=== PATIENT | male | born 1990 | race Caucasian/White ===

== ENCOUNTER 2025-01-17 22:55 | Inpatient (IN) | payer OTHER, SELFPAY ==
[2025-01-17 18:54] VITALS: BP 154/81
--- NOTE | 2025-01-17 19:26 | ED.GENMED ---
History of Present Illness
<THIEN Beaver - Last Filed: 01/17/25 22:13>
General
Chief Complaint: Breathing Problem
Source: patient
Exam Limitations: none
Time Seen by Provider: 01/17/25 19:26
Nursing documentation reviewed up to this point in time: agreed with
History of Present Illness
History of Present Illness:
Patient is a 34-year-old male with history of Down syndrome with history of AV canal repair at 6 months of age presents to the ER for evaluation. Parents report the patient has had symptoms of cough for the past several months and he is presently
seeing a smutter at [facility]. Patient is on albuterol and Atrovent nebs at home and Tessalon. He recently started antibiotics today. They report prior to arrival however he started to have shortness of breath suddenly and they noticed his
heart rate was fast. No recent fevers.
Review of Systems
<THIEN Beaver - Last Filed: 01/17/25 22:13>
Review of Systems
Allergies reviewed?: Yes
Other source history: family
All Other Systems: ROS reviewed and negative except as documented in HPI and ROS
Constitutional: Reports no symptoms
Respiratory: Reports trouble breathing
Cardiac: Reports no symptoms
ABD/GI: Reports no symptoms
: Reports no symptoms
Musculoskeletal: Reports no symptoms
Skin: Reports no symptoms
Neurological: Reports no symptoms
Phy Exam
<THIEN Beaver - Last Filed: 01/17/25 22:13>
General Physical Exam
General Presentation: no apparent distress
General age: appears stated age
General Skin: warm and dry
General Habitus: normal
General Mental: alert
General Hydration: appears well hydrated
Neurological Exam
Neurological Exam: alert and oriented x3
Musculoskeletal Exam
Musculoskeletal Exam: full ROM
Skin Exam
Skin Exam: normal color and warm/dry
Psychiatric Exam
Psychiatric Exam: normal mood/affect
Course
<THIEN Beaver - Last Filed: 01/17/25 22:13>
Orders/Labs/Results
Orders:
Orders
01/17/25 18:57
ECG [Electrocardiogram (*1)] Urgent
Reason for Study: Shortness of Breath
EKG- Treatment ONCE
01/17/25 19:34
Portable Chest Xray [CR Chest Portable - 1 View] Urgent
Comment:
Reason For Exam: But I was goingsob
Reason Study Needs to be Portable: Unable to Transport
01/17/25 19:35
IV Insert/Care/Rem.- Treatment PRN
0.9% Sodium Chloride 1000 ml [Nss] 1,000 ml IV BOLUS
01/17/25 19:40
Acetaminophen [Tylenol] 650 mg .ROUTE .STK-MED ONE
01/17/25 19:43
Acetaminophen [Tylenol] 650 mg PO NOW STA
01/17/25 19:45
COVID-19 Antigen Urgent
Source: Nasal Swab
Complete Blood Count/With Diff Urgent
Comprehensive Metabolic Panel Urgent
DDimer [D-Dimer] Urgent
TSH Reflex To Free T4 Urgent
Influenza A+B Rapid Molecular Urgent
DARYL Source: Nasal Swab
Specimen Description:
01/17/25 19:48
NT-proBNP Urgent
01/17/25 20:04
Add On- LAB Urgent
Tests Added?: cardiac bnp
01/17/25 20:08
Rapid Strep Group A Urgent
DARYL Source: Throat/Pharynx
Specimen Description:
Date Specimen was Collected: 01/17/25
Time Specimen was Collected: 20:06
01/17/25 20:54
CT Chest PE Study Urgent
Comment:
Reason For Exam: tachycardic, sob, cough, fever
01/17/25 22:02
Azithromycin 500 mg/250 ml [Zithromax Infusion] 500 mg in 250 ml IV NOW
CefTRIAXone [Rocephin] 1,000 mg IV NOW STA
01/17/25 22:17
Lactic Acid Urgent
Blood Culture Q30M
DARYL Source: Blood/Venous
Specimen Description:
Blood Culture Q30M
DARYL Source: Blood/Venous
Specimen Description:
01/17/25 22:42
Admit/Transfer Patient As Directed
Co-Sign Provider:
Level of Care: Inpatient admission
Assign to:: Medical/Surgical
Physician / Group: Bridger
Diagnosis: Pneumonia
Reason for Hospitalization: IV abx
Expected length of stay greater than two midnights?: Yes
ELOS- Estimated Length of Stay in days: 3
I certify the patient meets the requirements for IP care: Yes
PRN Pain Medication Management As Directed
May give lesser potent ordered pain med per pt: Yes
preference::
Protocol:: Medication orders for pain may be administered in a
manner that supports deferring to patient preference
when the pt is:
- Requesting an ordered lesser potent pain medication.
Least to most potent pain medications are defined
as: acetaminophen < NSAID < tramadol < opioids
(morphine, oxycodone, hydromorphone).
- Requesting a lesser dose of the same medication IF
ORDERED.
- Requesting a less intrusive route of administration
if both routes are prescribed by the provider (PO <
IV).
01/17/25 22:45
Code Status As Directed
Resuscitation Status: Full Code
Abnormal Lab Results
01/17/25
19:45
RBC 4.59 L 10^6/uL
(4.70-6.10)
Plt Count 494 H 10^3/uL
(130-400)
Abs Immat Gran (auto) 0.1 H 10^3/uL
(0-0.05)
Absolute Neuts (auto) 6.7 H 10^3/uL
(1.4-6.5)
Absolute Monos (auto) 1.0 H 10^3/uL
(0.1-0.6)
Immature Gran % 0.7 H %
(0-0.5)
Lymphocytes % 13.2 L %
(20.5-51.1)
Monocytes % 11.3 H %
(1.7-9.3)
Glucose 107 H mg/dl
(70-99)
01/17/25 19:45
01/17/25 19:45
Vital Signs
Initial and Last Documented VS:
Initial Vital Signs
Temp Pulse Resp BP Pulse Ox
98.0 F 120 20 154/81 93
01/17/25 18:54 01/17/25 18:54 01/17/25 18:54 01/17/25 18:54 01/17/25 18:54
Last Documented Vital Signs
Temp Pulse Resp BP Pulse Ox
98.3 F 111 14 132/89 96
01/17/25 22:27 01/17/25 22:30 01/17/25 22:30 01/17/25 22:00 01/17/25 22:30
Factory Worker consulted with Physician
Factory Worker consulted with physician?: Yes
Name of Physician Consulted: Konstantin.
<Elo Cr, DO - Last Filed: 01/17/25 23:00>
Orders/Labs/Results
Orders:
Orders
01/17/25 18:57
ECG [Electrocardiogram (*1)] Urgent
Reason for Study: Shortness of Breath
EKG- Treatment ONCE
01/17/25 19:34
Portable Chest Xray [CR Chest Portable - 1 View] Urgent
Comment:
Reason For Exam: But I was goingsob
Reason Study Needs to be Portable: Unable to Transport
01/17/25 19:35
IV Insert/Care/Rem.- Treatment PRN
0.9% Sodium Chloride 1000 ml [Nss] 1,000 ml IV BOLUS
01/17/25 19:40
Acetaminophen [Tylenol] 650 mg .ROUTE .STK-MED ONE
01/17/25 19:43
Acetaminophen [Tylenol] 650 mg PO NOW STA
01/17/25 19:45
COVID-19 Antigen Urgent
Source: Nasal Swab
Complete Blood Count/With Diff Urgent
Comprehensive Metabolic Panel Urgent
DDimer [D-Dimer] Urgent
TSH Reflex To Free T4 Urgent
Influenza A+B Rapid Molecular Urgent
DARYL Source: Nasal Swab
Specimen Description:
01/17/25 19:48
NT-proBNP Urgent
01/17/25 20:04
Add On- LAB Urgent
Tests Added?: cardiac bnp
01/17/25 20:08
Rapid Strep Group A Urgent
DARYL Source: Throat/Pharynx
Specimen Description:
Date Specimen was Collected: 01/17/25
Time Specimen was Collected: 20:06
01/17/25 20:54
CT Chest PE Study Urgent
Comment:
Reason For Exam: tachycardic, sob, cough, fever
01/17/25 22:02
Azithromycin 500 mg/250 ml [Zithromax Infusion] 500 mg in 250 ml IV NOW
CefTRIAXone [Rocephin] 1,000 mg IV NOW STA
01/17/25 22:17
Lactic Acid Urgent
Blood Culture Q30M
DARYL Source: Blood/Venous
Specimen Description:
Blood Culture Q30M
DARYL Source: Blood/Venous
Specimen Description:
01/17/25 22:42
Admit/Transfer Patient As Directed
Co-Sign Provider:
Level of Care: Inpatient admission
Assign to:: Medical/Surgical
Physician / Group: Bridger
Diagnosis: Pneumonia
Reason for Hospitalization: IV abx
Expected length of stay greater than two midnights?: Yes
ELOS- Estimated Length of Stay in days: 3
I certify the patient meets the requirements for IP care: Yes
PRN Pain Medication Management As Directed
May give lesser potent ordered pain med per pt: Yes
preference::
Protocol:: Medication orders for pain may be administered in a
manner that supports deferring to patient preference
when the pt is:
- Requesting an ordered lesser potent pain medication.
Least to most potent pain medications are defined
as: acetaminophen < NSAID < tramadol < opioids
(morphine, oxycodone, hydromorphone).
- Requesting a lesser dose of the same medication IF
ORDERED.
- Requesting a less intrusive route of administration
if both routes are prescribed by the provider (PO <
IV).
01/17/25 22:45
Code Status As Directed
Resuscitation Status: Full Code
Abnormal Lab Results
01/17/25
19:45
RBC 4.59 L 10^6/uL
(4.70-6.10)
Plt Count 494 H 10^3/uL
(130-400)
Abs Immat Gran (auto) 0.1 H 10^3/uL
(0-0.05)
Absolute Neuts (auto) 6.7 H 10^3/uL
(1.4-6.5)
Absolute Monos (auto) 1.0 H 10^3/uL
(0.1-0.6)
Immature Gran % 0.7 H %
(0-0.5)
Lymphocytes % 13.2 L %
(20.5-51.1)
Monocytes % 11.3 H %
(1.7-9.3)
Glucose 107 H mg/dl
(70-99)
01/17/25 19:45
01/17/25 19:45
Vital Signs
Initial and Last Documented VS:
Initial Vital Signs
Temp Pulse Resp BP Pulse Ox
98.0 F 120 20 154/81 93
01/17/25 18:54 01/17/25 18:54 01/17/25 18:54 01/17/25 18:54 01/17/25 18:54
Last Documented Vital Signs
Temp Pulse Resp BP Pulse Ox
98.3 F 111 14 132/89 96
01/17/25 22:27 01/17/25 22:30 01/17/25 22:30 01/17/25 22:00 01/17/25 22:30
<THIEN Beaver - Last Filed: 01/17/25 22:13>
MDM/Problems Addressed
MDM/Problems Addressed:
As documented patient is a 34-year-old male with history of Down syndrome brought by his parents. He has had cough for weeks to months and has been seen by [facility] pulmonology. He in fact was started on Zithromax today however prior to arrival
patient was short of breath and was brought by parents. Patient presented tachypneic tachycardic and mildly hypoxic. Patient was found to be febrile here and given Tylenol and fluids. Patient has a normal white count, negative D-dimer negative
COVID-negative flu negative strep. With persistent tachycardia hypoxia CAT scan was done which is negative for PE; findings most consistent with infectious/inflammatory bronchiolitis in the right upper lobe.
Pt however does remain hypoxic and appears mild SOB . O2 applied with persistent hypoxia and tachycardia and shortness of breath patient will require admission to the hospital IV antibiotics ordered lactic and blood cultures ordered. Case
discussed with ED physician who evaluated patient agrees with assessment and plan.
Chronic conditions affecting care:
hx of av repair in past
<THIEN Beaver - Last Filed: 01/17/25 22:13>
*Radiology
Radiology exam reviewed: radiology read reviewed
*Pulse Oximetry
Patient hypoxic: yes
*EKG
Interpreted by ED Provider?: Yes
Heart Rate: 123
Rate: tachycardiac
Rhythm: sinus tachycardia
Ischemia: non-specific ST changes
*Critical Care Note
Total Time (30-74mins, 75-104mins- exclusive of procedures): Not Applicable
Data Reviewed
Review of Other/Old Records Reveals: Other (echo from 2022. )
ED Attending Note
<THIEN Beaver - Last Filed: 01/17/25 22:13>
-
Portions of this chart may have been created with voice recognition software.� Occasional wrong word or��sound alike� substitutions may have occurred due to the inherent limitations of voice recognition software.
<Elo Cr DO - Last Filed: 01/17/25 23:00>
ED Attending Note
Patient seen and examined by attending physician: Yes
I performed the substantive portion of visit, reviewed & personally made and approve the management plan that is documented in note by myself or JOANA.: Yes
ED Attending Note:
I have reviewed and agree with THIEN Moore's history and treatment plan.
Heart tachycardic, crackles right base. Patient hypoxic to 89 to 92% on room air. Placed on supplemental oxygen. Patient febrile. Chest x-ray clear with no focal infiltrate or consolidation. Ordered CT which showed infectious/inflammatory
bronchiolitis in the right upper lobe and possibly in the right lower lobe. Given patient is hypoxic and persistently tachycardic, started on IV antibiotics. Admit
Discharge Plan
Departure
Patient Disposition: Admit
Date of Disposition: 01/17/25
Time of Disposition: 22:03
Admit to: Med/Surg
Admit to doctor: hospitalist
Presentation/result/management discussed w/ accepting MD/DO: Hospitalist
Patient with high blood pressure during this ER visit?: Yes
Condition: Fair
Covid-19: Not Applicable
Discharge Problem:
Pneumonia, hypoxia
Interventions
Interventions:
*General Assessment Last Done: 01/17/25 18:54
ED- Cardiac Assessment Last Done: 01/17/25 19:58
ED- Pulmonary Assessment Last Done: 01/17/25 19:58
[2025-01-17] MEDS: NSS 1000 IV (19:42)
[2025-01-17] MEDS: TYLENOL 650 MG PO (19:43)
[2025-01-17 19:50] LABS: % Basophils 0.8 % (0-2); % Eosinophils 0.8 % (0-6); % Immature Granulocytes 0.7 % (0-0.5); % Lymphocytes 13.2 % (20.5-51.1); % Monocytes 11.3 % (1.7-9.3); % Neutrophils 73.2 % (42.2-75.2); Absolute Basophils 0.1 10^3/uL (0-0.2); Absolute Eosinophils 0.1 10^3/uL (0-0.7); Absolute Immature Granulocytes 0.1 10^3/uL (0-0.05); Absolute Lymphocytes 1.2 10^3/uL (1.2-3.4); Absolute Neutrophils 6.7 10^3/uL (1.4-6.5); Hematocrit 42.5 % (39.0-52.0); Hemoglobin 14.2 g/dL (13.0-18.0); Mean Corp Hgb Conc. 33.4 g/dL (33.0-37.0); Mean Corpuscular Hgb 30.9 pg (27.0-31.0); Mean Corpuscular Volume 92.6 fL (80.0-94.0); Mean Platelet Volume 9.6 fL (7.4-10.4); Nucleated Red Blood Cells % 0 % (-); Platelet Count 494 10^3/uL (130-400); Red Blood Cell Count 4.59 10^6/uL (4.70-6.10); Red Cell Dist. Width 14.1 % (11.5-14.5); White Blood Cell Count 9.1 10^3/uL (4.8-10.8)
[2025-01-17 20:00] VITALS: BP 122/86
[2025-01-17 20:05] LABS: D-Dimer 0.36 ug/mlFEU (0.00-0.50)
[2025-01-17 20:10] LABS: ALT (SGPT) 18 U/L (0-50); AST (SGOT) 22 U/L (17-59); Albumin 4.2 g/dl (3.5-5.0); Alkaline Phosphatase 69 U/L (38-126); Blood Urea Nitrogen 16 mg/dl (9-20); Calcium 9.3 mg/dl (8.4-10.2); Carbon Dioxide 25 mmol/L (22-30); Chloride 99 mmol/L (98-107); Glucose 107 mg/dl (70-99); Potassium 4.8 mmol/L (3.5-5.1); Sodium 136 mmol/L (135-145); Total Bilirubin 0.5 mg/dl (0.2-1.3); Total Protein 7.9 g/dl (6.3-8.2); eGFR > 60.00
[2025-01-17 20:21] LABS: COVID-19 Antigen Negative (Negative)
[2025-01-17 20:39] LABS: NT-proBNP 48.7 pg/ml
[2025-01-17 21:00] VITALS: BP 95/68
[2025-01-17 22:00] VITALS: BP 132/89
[2025-01-17] MEDS: ROCEPHIN 1000 MG IV (22:20)
[2025-01-17 22:37] LABS: Lactic Acid 0.8 mmol/L (0.7-2.0)
--- NOTE | 2025-01-17 22:51 | HPS.HSE ---
Addendum entered and electronically signed by Ronald Sparks DO 01/17/25 23:20:
Patient seen and examined independently. Agree with findings and plan as set forth by Abi Tanner PA-C.
Patient is a 34y M with PMH significant for Down Syndrome, hypothyroidism and anxiety who presents to ED for evaluation of cough, fever and SOB. History obtained from patient and his mother at the bedside. Patient has been having intermittent
symptoms of cough / congestion since 07/2024. He has been treated multiple times with course of antibiotics, steroids, inhalers, etc - always with temporary improvement in his symptoms. He has been followed / evaluated by Pulmonary at [facility].
Today he was seen there and started on azithromycin (took initial 500mg dose). After his appointment, patient continued coughing and appeared to be short of breath as well - prompting his mother to bring him to the ED for evaluation.
Ass:
RUL Pneumonia
Sepsis secondary to the above
Acute Hypoxemic Respiratory Failure secondary to the above
Down Syndrome
Hypothyroidism
Anxiety
Plan:
Admit for further evaluation and treatment.
CT scan shows RUL inflammation / bronchiolitis.
Patient presents with fever, tachycardia, tachypnea and abnormal chest imaging c/w pneumonia.
Continue abx with ceftriaxone / azithromycin.
Supportive care including nebs, cough suppressants, etc.
Pulmonary evaluation given recurrent / persistent symptoms.
Speech evaluation given concern for serial aspiration as etiology for ongoing symptoms.
Follow for clinical improvement.
Original Note:
Family Physician
-
Family Physician: Kristina Hope
Chief Complaint
-
Cough and Fever
History of Present Illness
Patient is a 34 y/o male past medical history of Down Syndrome, Hypothyroidism, and Anxiety who presents with cough and fever. Additional history provide by patient's parents at the bedside. Since July patient has been experiencing recurrent
episodes of cough. Cough is productive sometimes of clear, and sometimes green/brown mucus. Over the last several months he has received several coarse of antibiotics, steroids, and inhalers. Symptoms seem to improve with treatments but then recur.
He did start a coarse of Zithromax with first dose earlier today. This afternoon patient was notably short of breath and noted to have elevated heart rate prompting his presentation to the emergency department. Patient developed fever while in the
emergency department and family notes he had a fever last night as well.
Medical History
Past Medical History
Past Medical History: Reports Other
Additional Past Medical History:
Down Syndrome
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
Hypothyroidism
Anxiety / OCD
Past Surgical History: Reports Other
Additional Past Surgical History:
Atrioventricular Canal Repair
Social History
Tobacco: Non-smoker
Living: With Family
Family History
Family History: Not pertinent
Allergies / Home Medications
Allergies reflects when Allergies were last updated in [employer].
Home Medications with original date entered in [employer]
Allergy/Medication List:
Allergies
Allergy/AdvReac Type Severity Reaction Status Date / Time
SEASONAL Allergy Unknown Uncoded 01/17/25 18:54
Home Medications
benzonatate 200 mg capsule 200 mg PO Q8HPRN PRN cough 01/17/25
fluticasone 250 mcg-salmeterol 50 mcg/dose blistr powdr for inhalation 1 inh inhalation BID 01/17/25
levothyroxine 50 mcg tablet 50 mcg PO DAILY 01/17/25
sertraline 25 mg tablet 25 mg PO DAILY 01/17/25
Review of Systems
-
A 12 point ROS was completed and negative except as noted: Yes
Constitutional: Reports Fever
Respiratory: Reports See HPI
Cardiac: Denies Chest Pain
Abdomen/GI: Denies Nausea or Vomiting
Physical Exam
Vital Signs
Vital Signs
Temp Pulse Resp BP Pulse Ox
98.3 F 111 14 132/89 96
01/17/25 22:27 01/17/25 22:30 01/17/25 22:30 01/17/25 22:00 01/17/25 22:30
Physical Exam
General: Well Developed and Well Nourished
HEENT: Anicteric and Moist mucous membranes
Respiratory: Wheezes, Rales (Few on the right) and Non Labored Respirations
Cardiac: S1/S2, Regular Rhythm and Tachycardia
GI: Soft and Non Tender
Rectal: Deferred by Provider
Musculoskeletal: No Clubbing, No Cyanosis and No Edema
Skin: Warm and Dry
Neuro: Awake, Alert, Oriented and Nonfocal/grossly intact
Psych: Calm
Laboratory Results
-
01/17/25 19:45
01/17/25 19:45
Laboratory Results
Lactic Acid 0.8 mmol/L (0.7-2.0) 01/17/25 22:17
Total Bilirubin 0.5 mg/dl (0.2-1.3) 01/17/25 19:45
AST 22 U/L (17-59) 01/17/25 19:45
ALT 18 U/L (0-50) 01/17/25 19:45
Alkaline Phosphatase 69 U/L (38-126) 01/17/25 19:45
Data Reviewed
-
Diagnostic Radiology: Report Reviewed by me
CT Scan: Report Reviewed by me
Lab Data: Labs Reviewed by me
Impression/Plan
-
Sepsis secondary to Right Upper Lobe Pneumonia
-Continue Ceftriaxone and Azithromycin
-Continue Mucinex and Tessalon Perles
-Continue Fluticasone Nebs and DuoNeb
-Consult Speech Therapy and Pulmonary given recurrent nature of symptoms
Hypothyroidism
-Continue levothyroxine
Anxiety / OCD
-Continue sertraline
Other Noted History
-Down Syndrome
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
DVT proph: Lovenox
Code Status: Full Code
[2025-01-17 23:00] VITALS: BP 144/89
[2025-01-17 23:35] VITALS: BP 142/87; BMI 25.3
[2025-01-18] MEDS: NSS 1000 IV ×2 (00:19→10:56)
[2025-01-18] MEDS: SYNTHROID 50 MCG PO (05:21)
[2025-01-18 06:33] LABS: Hematocrit 38.5 % (39.0-52.0); Mean Corp Hgb Conc. 33.8 g/dL (33.0-37.0); Mean Corpuscular Hgb 31.3 pg (27.0-31.0); Mean Corpuscular Volume 92.8 fL (80.0-94.0); Mean Platelet Volume 9.8 fL (7.4-10.4); Platelet Count 429 10^3/uL (130-400); Red Blood Cell Count 4.15 10^6/uL (4.70-6.10)
[2025-01-18 06:55] LABS: Blood Urea Nitrogen 12 mg/dl (9-20); Calcium 8.9 mg/dl (8.4-10.2); Carbon Dioxide 26 mmol/L (22-30); Chloride 104 mmol/L (98-107); Estimated Creatinine Clearance 114 ml/min; Glucose 107 mg/dl (70-99); Potassium 4.7 mmol/L (3.5-5.1); Sodium 138 mmol/L (135-145); eGFR > 60.00
[2025-01-18] MEDS: PULMICORT 0.5 MG INH (07:32)
[2025-01-18] MEDS: DUONEB 3 ML INH ×2 (07:32→11:20)
[2025-01-18 07:55] VITALS: BP 150/89
[2025-01-18] MEDS: ZITHROMAX 500 MG PO (08:34)
[2025-01-18] MEDS: ZOLOFT 25 MG PO (08:34)
[2025-01-18] MEDS: MUCINEX 600 MG PO ×2 (08:34→20:21)
--- NOTE | 2025-01-18 11:05 | PTOTSP ---
Speech Therapy
Presentation: Patient's speech appeared to be mildly dysarthric characterized by imprecise consonant production which is his baseline per parents (patient is diagnosed with Down Syndrome). Patient's voice appearedto be weak. Patient demonstrated
baseline coughing which has been going on for approx 5 months per parents. Patient was pleasant and followed simple 1 step commands.
Swallowing Function: Patient demonstrated baseline coughing in whch sputum was expeled from oral cavity (yellow tinged). Patient was observed with several bites of cracker and sips of thin liquids (straw) in which patient appeared to tolerate as he
did not exhibit any overt clinical s/sx of aspiration or difficulty with mastication, manipulation or oral containment.
Per parents, patient has had a great appetite and is impulsive with PO; taking large bites and sips at once. BOX ESTIMATOR reviewed strategies to help with impulsive eating.
Recommendations:
1) Continuation of regular consistency solids and thin liquids
2) Standard aspiration precautions
3) Medications as tolerated
4) Assistance/ supervision with PO given impulsivity
Plan: No further BOX ESTIMATOR intervention is indicated at this time.
--- NOTE | 2025-01-18 11:30 | W.PN.HOSP.TC ---
Today's Communication/Plan
-
Continue antibiotics
Wean oxygen
Check urinary antigens
Pulmonary consult
Assessment / Plan
Assessment / Plan
Gen-AAOx3, NAD
HEENT-NC, AT, anicteric, clear oral mm
Neck-supple
CV-reg, no M, +S1/S2
Lungs-clear B/L
Abd-soft, NT, ND
Ext-no edema
Musculoskeletal-no cyanosis, clubbing
Skin-warm and dry
Neuro-grossly non-focal
Psych-calm, cooperative
Acute hypoxic respiratory insufficiency -due to pneumonia. Currently on 2 L nasal cannula, wean down as able.
Sepsis due to community-acquired pneumonia -hemodynamically stable. Continue antibiotics. Can discontinue further IV fluids given stability.
COVID, influenza negative. Check urinary antigens. Blood cultures pending.
Community-acquired pneumonia -CT shows infiltrate in the right upper lobe and right lower lobe.
Risk factors are underlying asthma. Patient's mother states the last time he had pneumonia was about 15 years ago.
Asthma -moderate persistent. Continue inhalers. Does have a chief sustainability officer. Pulmonary was consulted.
Potential allergen exposures at home include dust, carpeting, dog.
Hypothyroidism -levothyroxine.
Anxiety disorder/OCD
Down syndrome
Congenital heart disease -s/p surgery.
full code
Anticipated Discharge: Within 24 hours
Subjective/Interval History
-
Date of Service: January 18, 2025
Patient seen and examined. Parents at the bedside. Patient himself has no complaints.
Objective Data
-
Labs:
Laboratory Results
01/18/25
06:06
WBC 9.0
Hgb 13.0
Hct 38.5 L
Plt Count 429 H
Sodium 138
Potassium 4.7
Chloride 104
Carbon Dioxide 26
BUN 12
Creatinine 0.8
Glucose 107 H
Calcium 8.9
Vital Signs:
Vital Signs
Temp Pulse Resp BP Pulse Ox
97.7 F 95 16 150/89 98
01/18/25 07:55 01/18/25 11:21 01/18/25 11:21 01/18/25 07:55 01/18/25 07:55
I&O
01/17/25 01/18/25 01/19/25
06:59 06:59 07:59
Intake Total 600 / 600
Balance 600 / 600
Review of Systems
-
History Source: Patient
All other systems: Reviewed and negative
--- NOTE | 2025-01-18 14:52 | CON.PUL ---
Consultation
Consultation Request
Date/Time Consultation Requested: 01/18/2025
Date/Time Consultation Performed: 01/18/2025
Requesting Provider: Mart Palomo
Performing Provider: Dorothy Sosa
Reason for Consultation: Recurrent pneumonia, Cough
Medical History
-
Chief Complaint: Cough, shortness of breath.
History of Present Illness:
Perry is a very pleasant 34-year-old patient with Down syndrome, hypothyroidism and OCD who presented with cough and fever. History was primarily obtained from patient's parent at bedside, primarily mother. Reportedly over the last 6 months
patient has had recurrent episodes of cough occasionally productive of green to brown mucus. He has had episodes where he developed a fever requiring antibiotics steroids and different inhalers. Patient has been on Trelegy in the past and then was
recently changed to Advair. Family reports that symptoms tend to resolve with antibiotics only to recur. And they also report that patient has almost daily symptoms of postnasal drip nasal obstruction and frequent episodes of cough. They report
rare episode of wheezing.
Most recently patient again developed respiratory symptoms and had a low-grade fever at night. In the emergency room patient had imaging performed which is suggestive of right upper lobe pneumonia and patient was started on antibiotics. Pulmonary
consultation was requested in view of recurrent respiratory symptoms and pneumonias.
Past medical history. History of Down syndrome, congenital heart disease s/p repair in the past, hypothyroidism, anxiety/OCD.
Past surgical history none.
Social history. Patient lives with family, non-smoker.
Allergies. Only seasonal allergies reported.
Family history. Patient's both siblings have asthma
Allergies / Home Medications
Allergies
Allergy/AdvReac Type Severity Reaction Status Date / Time
SEASONAL Allergy Unknown Uncoded 01/17/25 18:54
Home Medications
�Medication �Instructions �Recorded �Confirmed �Last Taken �Type
benzonatate 200 mg capsule 200 mg PO Q8HPRN PRN cough 01/17/25 01/17/25 Unknown History
fluticasone 250 mcg-salmeterol 50 1 inh inhalation BID 01/17/25 01/17/25 Unknown History
mcg/dose blistr powdr for
inhalation
levothyroxine 50 mcg tablet 50 mcg PO DAILY 01/17/25 01/17/25 Unknown History
sertraline 25 mg tablet 25 mg PO DAILY 01/17/25 01/17/25 Unknown History
Review of Systems
-
EENT: Other (Patient has postnasal drip, nasal congestion, occasional fullness of ear sensation.)
Vitals / Labs / Diagnostic Testing
Vital Signs
Temp Pulse Resp BP Pulse Ox
97.7 F 95 16 150/89 94
01/18/25 07:55 01/18/25 11:21 01/18/25 11:21 01/18/25 07:55 01/18/25 11:50
Lab Data
01/18/25 06:06
01/18/25 06:06
Microbiology
01/17/25 20:08 Throat/Pharynx Streptococcus Screen ([facility]) - Preliminary
Culture in Progress
01/17/25 20:08 Throat/Pharynx Streptococcus Rapid Screen - Final
Rapid Strep Screen (Group A) Negative
01/17/25 19:45 Nasal Swab Influenza Types A & B ([facility]) - Final
Negative for Influenza A & B, NAAT
Negative results must be combined with clinical observations
and patient history.
Nucleic Acid Amplification test (NAAT)performed on the
[employer] platform.
Diagnostic Testing:
Eosinophil count around [address] Chest 01/2025: 1. No evidence of pulmonary embolism within the limitations as described.
2. Findings most in keeping with infectious/inflammatory bronchiolitis in the right upper lobe. Possible additional involvement of the right lower lobe, limited by motion.
Physical Exam
-
HEENT: Normocephalic
Cardiovascular: S1/S2
Respiratory: Clear
GI: Soft and Non Distended
Neurology: Awake and Alert
Skin: Warm and Dry
General: Comfortable
Assessment
-
#1. Right upper lobe pneumonia.
Patient has signs and symptoms consistent with pulmonary infection. CT scan reviewed, tree-in-bud right upper lobe opacities noted concerning for infection. Right upper lobe posterior segment involvement with aspiration is less likely but can
certainly happen in a patient who is supine.
-Agree with treating like a community-acquired pneumonia with ceftriaxone and a Zithromax
-Recommend sputum cultures if patient is able to produce any sputum
-Evaluation with speech therapy, low pretest probability of aspiration
#2. Chronic cough, postnasal drip and recurrent respiratory symptoms.
On careful history, patient's symptoms appear to be more suggestive of upper respiratory tract rather than pulmonary/related to asthma. Patient reports frequent postnasal drip, repeated throat clearing and nasal obstruction. Patient also has had
episodes of sinusitis with sinus fullness and sense of fullness in the ears.
-Recommend starting intranasal steroid, Flonase or [id number] Nasonex, 2 sprays twice a day
-Will proceed with CT sinuses, depending on results, might need outpatient follow-up with ENT service
-Will discontinue inhaled budesonide as diagnosis of asthma is not confirmed. Eosinophil count is only 100.
-Once patient recovers from acute infection, will need dedicated pulmonary function testing for further evaluation
-Patient currently established with the pulmonary clinic and will need to resume follow-up after discharge
We will follow along
Total time spent on this consultation/encounter __55__ minutes which includes review of history, physical exam, medications, laboratory data, personal review of imaging, extensive review of outpatient records, discussion with care team and
respiratory therapy.
Data:
01/2025. Influenza screen, COVID-19, strep antigen negative
Eosinophil count around [address] Chest 01/2025: 1. No evidence of pulmonary embolism within the limitations as described.
2. Findings most in keeping with infectious/inflammatory bronchiolitis in the right upper lobe. Possible additional involvement of the right lower lobe, limited by motion.
[2025-01-18 15:31] VITALS: BP 121/83
[2025-01-18] MEDS: VENTOLIN NEBULES 2.5 MG INH ×2 (15:35→19:43)
[2025-01-18] MEDS: LOVENOX 40 MG SC (18:16)
[2025-01-18] MEDS: ROCEPHIN 1000 MG IV (22:20)
[2025-01-18] MEDS: STERILE WATER FOR INJECTION 10 ML IV (22:21)
[2025-01-18 23:02] VITALS: BP 124/79
[2025-01-19] MEDS: SYNTHROID 50 MCG PO (06:37)
[2025-01-19 07:25] VITALS: BP 124/82
[2025-01-19] MEDS: VENTOLIN NEBULES 2.5 MG INH ×2 (07:36→11:27)
[2025-01-19] MEDS: ZITHROMAX 500 MG PO (08:21)
[2025-01-19] MEDS: ZOLOFT 25 MG PO (08:21)
[2025-01-19] MEDS: MUCINEX 600 MG PO (08:21)
--- NOTE | 2025-01-19 10:24 | CM ---
Parents at bedside
IA Obtained from mom Lilly
CT scan today
Lives in 2 story home with mom & dad, 2 steps to enter, flight stairs to bedroom
PLOF: Independent
Denies DME
Denies HH/Rehab
Mom states sister is a paid caregiver for patient 40hrs/wk
PCP: Dr. Hou, [facility]
Pharmacy: [facility], [address], [place]
PLAN: home, no anticipated needs
parents to transport
--- NOTE | 2025-01-19 11:54 | W.PN.HOSP.TC ---
Addendum entered and electronically signed by Mart Palomo DO 01/19/25 14:36:
Sinus CT shows pansinusitis. Complete opacification of the bilateral ostiomeatal units.
Will need outpatient ENT follow-up.
Discussed with pulmonary service. Okay to discharge on antibiotics and nasal steroids. Outpatient follow-up.
Family aware of plan.
Original Note:
Today's Communication/Plan
-
Follow-up CT sinuses
Possible discharge
Assessment / Plan
Assessment / Plan
Gen-AAOx3, NAD
HEENT-NC, AT, anicteric, clear oral mm
Neck-supple
CV-reg, no M, +S1/S2
Lungs-minimal wheezing, mostly upper airway
Abd-soft, NT, ND
Ext-no edema
Musculoskeletal-no cyanosis, clubbing
Skin-warm and dry
Neuro-grossly non-focal
Psych-calm, cooperative
Acute hypoxic respiratory insufficiency -due to pneumonia. Oxygenation improved, now on room air.
Sepsis due to community-acquired pneumonia -hemodynamically stable. Continue antibiotics.
COVID, influenza negative. Urinary antigens negative. Blood cultures negative so far.
Community-acquired pneumonia -CT shows infiltrate in the right upper lobe and right lower lobe.
Risk factors are underlying asthma. Patient's mother states the last time he had pneumonia was about 15 years ago.
Symptoms improving. Minimal wheezing on exam. Add Acapella for productive cough. Discussed with family.
Asthma -questionable diagnosis as per pulmonary. Continue inhalers. Does have a culturist. Family requesting follow-up with pulmonary at [place].
Potential allergen exposures at home include dust, carpeting, dog.
Nasal steroids ordered. CT sinuses completed, report pending.
Hypothyroidism -levothyroxine.
Anxiety disorder/OCD
Down syndrome
Congenital heart disease -s/p surgery.
full code
Dispo -can discharge if cleared by pulmonary.
Updated parents at the bedside.
Anticipated Discharge: Today
Subjective/Interval History
-
Date of Service: January 19, 2025
Patient seen and examined. No complaints. Family at the bedside.
Objective Data
-
Vital Signs:
Vital Signs
Temp Pulse Resp BP Pulse Ox
98.1 F 80 16 124/82 96
01/19/25 07:25 01/19/25 11:29 01/19/25 11:29 01/19/25 07:25 01/19/25 07:40
I&O
01/18/25 01/19/25 01/20/25
05:59 06:59 06:59
Intake Total
Balance
Review of Systems
-
History Source: Patient
All other systems: Reviewed and negative
--- NOTE | 2025-01-19 14:32 | W.PN.PUL3 ---
Today's Communication / Plan
-
-Recommend 2 weeks of Antibiotics, Augmentin or a Cephalosporin
-Mucinex 600 mg bid for 2 weeks
-Intra-nasal Flonase q 12 hrs
-Patient needs follow up with ENT surgeon as he might need sinus drainage interventions
-Keep appointment with [employer] as scheduled
-Can d/c from Pulmonary stand point
Assessment
-
#1. Right upper lobe pneumonia.
Patient has signs and symptoms consistent with pulmonary infection. CT scan reviewed, tree-in-bud right upper lobe opacities noted concerning for infection. Right upper lobe posterior segment involvement with aspiration is less likely but can
certainly happen in a patient who is supine.
-Agree with treating like a community-acquired pneumonia with ceftriaxone and a Zithromax
#2. Severe bilateral hills-sinusitis.
CT Sinus: Findings of pansinusitis most pronounced in the bilateral maxillary sinuses. There is complete opacification of the bilateral ostiomeatal units.
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 Deviated nasal septum
I believe patient's primary issue behind recurrent URI symptoms/Cough is the pansinusitis findings on CT which correlate with his symptoms.
-Recommend 2 weeks of Antibiotics, Augmentin or Cephalosporin
-Mucinex 600 mg bid for 2 weeks
-Intra-nasal Flonase
-Patient needs follow up with ENT surgeon as he might need sinus drainage interventions
-I went over these findings and recommendations with patient's mother at bedside
-Keep appointment with [employer] as scheduled
We will follow along
Total time spent on this consultation/encounter __35__ minutes which includes review of history, physical exam, medications, laboratory data, personal review of imaging, extensive review of outpatient records, discussion with care team and
respiratory therapy.
Data:
01/2025. Influenza screen, COVID-19, strep antigen negative
Eosinophil count around [address] Chest 01/2025: 1. No evidence of pulmonary embolism within the limitations as described.
2. Findings most in keeping with infectious/inflammatory bronchiolitis in the right upper lobe. Possible additional involvement of the right lower lobe, limited by motion.
Subjective Data
-
Date of Service:
Date of Service: January 19, 2025
Subjective:
Patient doing well on room air
Review of Systems
General: Other (no new symptoms reported)
Genitourinary: Other
Objective Data
Data Reviewed
Vital Signs / I&O / Oxygen:
Vital Signs
Temp Pulse Resp BP Pulse Ox
98.1 F 80 16 124/82 96
01/19/25 07:25 01/19/25 11:29 01/19/25 11:29 01/19/25 07:25 01/19/25 07:40
Intake and Output
01/18/25 01/19/25 01/20/25
05:59 06:59 06:59
Intake Total
Balance
SaO2 96
Nasal Cannula flow liters per 2
minute
Physical Exam
General: Comfortable
HEENT: Normocephalic
Cardiovascular: S1-S2
Respiratory: Clear and Non-Labored Respirations
GI: Soft and Non Distended
Neurology: Awake and Alert
Skin: Warm
Labs/Micro/Reports
Lab Data
01/18/25 06:06
01/18/25 06:06
Microbiology
01/17/25 20:08 Throat/Pharynx Streptococcus Screen (DARYL) - Final
No Beta Hemolytic Streptococci Isolated
01/17/25 20:08 Throat/Pharynx Streptococcus Rapid Screen - Final
Rapid Strep Screen (Group A) Negative
01/18/25 15:59 Urine Legionella Urinary Antigen - Final
Negative for Legionella pneumophila Serogroup 1 antigen.
A negative result does not rule out the possiblity of
Legionella infection due to other serogroups or species of
Legionella. Clinical correlation is recommended.
01/18/25 15:59 Urine Streptococcus pneumoniae Antigen (M - Final
Negative for Streptococcus pneumoniae antigen.
A negative result does not exclude infection with
Streptococcus pneumoniae. Clinical correlation is
recommended.
01/17/25 22:17 Blood/Venous Blood Culture - Preliminary
No Growth in 24 hours- Final report to follow
01/17/25 22:17 Blood/Venous Blood Culture - Preliminary
No Growth in 24 hours- Final report to follow
01/17/25 19:45 Nasal Swab Influenza Types A & B (NIMCO) - Final
Negative for Influenza A & B, NAAT
Negative results must be combined with clinical observations
and patient history.
Nucleic Acid Amplification test (NAAT)performed on the
[employer] platform.
--- NOTE | 2025-01-19 14:40 | W.DS.TRANS ---
DC Summary - [employer]
-
Discharge Instructions:
Discharge Diagnosis/Procedures Community-acquired pneumonia, sinusitis
Diet Regular
Activity As tolerated
Driving Restrictions No driving
Bathing Restrictions None
Instructions:
Stand-Alone Forms:
Changes to Home Medications: No
Discharge Medications:
DC Medications w/original date entered in [employer]
benzonatate 200 mg capsule 200 mg PO Q8HPRN PRN cough 01/17/25
fluticasone 250 mcg-salmeterol 50 mcg/dose blistr powdr for inhalation 1 inh inhalation BID 01/17/25
levothyroxine 50 mcg tablet 50 mcg PO DAILY 01/17/25
sertraline 25 mg tablet 25 mg PO DAILY 01/17/25
amoxicillin 875 mg-potassium clavulanate 125 mg tablet 1 tab PO BID #28 tabs 01/19/25
fluticasone propionate 50 mcg/actuation nasal spray,suspension 2 spray intranasal DAILY #16 grams 01/19/25
guaifenesin 600 mg tablet, extended release 12 hr 600 mg PO Q12 #0 tabs 01/19/25
Home Medication Changes
Pending Results: No
[2025-01-19 15:15] VITALS: BP 114/70
[2025-01-19] MEDS: VENTOLIN NEBULES INH (15:39)
--- NOTE | 2025-01-19 15:55 | PTCARENOTE ---
pt discharged home with parents, Acapella device given and taught how to use it.
[2025-01-20 00:02] LABS: IgG 1180 mg/dl (700-1600); IgM 99 mg/dl (40-230)
[2025-01-20 00:19] LABS: IgA 817 mg/dl (70-400)
== END 2025-01-19 15:48 | disposition home or self-care (01) | DRG 871 ==
LOC: 2 NORTH 22:55
PROVIDERS: Nurse Practitioner; Physician Assistant Medical; ADMITTING PHYSICIAN Hospitalist; ATTENDING PHYSICIAN Hospitalist; CONSULT PHYSICIAN Internal Medicine; EMERGENCY PHYSICIAN Emergency Medicine; FAMILY PHYSICIAN Family Medicine
DX: A41.9 Sepsis, unspecified organism (principal); J18.9 Pneumonia, unspecified organism; J96.01 Acute respiratory failure with hypoxia; J21.9 Acute bronchiolitis, unspecified; J32.4 Chronic pansinusitis; Q90.9 Down syndrome, unspecified; E03.9 Hypothyroidism, unspecified; F41.9 Anxiety disorder, unspecified; Z87.74 Personal history of (corrected) congenital malformations of heart and circulatory system; F42.9 Obsessive-compulsive disorder, unspecified; Z79.890 Hormone replacement therapy; Z87.01 Personal history of pneumonia (recurrent); Z82.5 Family history of asthma and other chronic lower respiratory diseases; Z11.52 Encounter for screening for COVID-19
CPT/HCPCS: 70486; 71045; 71275; 80048; 80053; 82784; 83605; 83880; 84443; 85025; 85027; 85379; 87040; 87070; 87449; 87502; 87811; 87880; 87899; 92610; 93005; 94640; 96361; 96374; 96375; 99285; Q9967

== ENCOUNTER → 2025-07-04 15:18 | Outpatient (REF) | payer OTHER, SELFPAY | LOC: HWRCS 15:18 | PROVIDERS: ATTENDING PHYSICIAN Internal Medicine Cardiovascular Disease; FAMILY PHYSICIAN Family Medicine | DX: Q24.9 Congenital malformation of heart, unspecified (principal) | CPT/HCPCS: 93306 ==

== ENCOUNTER → 2025-10-24 10:18 | Outpatient (REF) | payer OTHER, SELFPAY | LOC: HWRAD 10:18 | PROVIDERS: ATTENDING PHYSICIAN Otolaryngology; FAMILY PHYSICIAN Family Medicine | DX: J32.2 Chronic ethmoidal sinusitis (principal) | CPT/HCPCS: 70486 ==